=== PATIENT | female | born 1940 | race Two or more races ===

== ENCOUNTER 2018-10-17 09:42 | Inpatient (IN) | payer OTHER ==
[~2018-10-17] VITALS: Ht 157.5 cm; Wt 54.9 kg
[2018-10-18] MEDS ORDERED: PERCOCET 5-3251 EACH PO (09:12)
[2018-10-18] MEDS ORDERED: ELIQUIS2.5 MG PO (09:12)
[2018-10-18] MEDS ORDERED: CEFADROXIL500 MG PO (09:12)
== END 2018-10-18 11:06 | disposition home or self-care (01) | DRG 482 ==
LOC: SURH 09:42 → O/R 19:04 → SURH 21:41
PROVIDERS: Orthopaedic Surgery
PROC: 0QR Lower Bones, Replacement (ICD-10-PCS; 2018-10-17)
PROC: 0QSC04Z Reposition Left Lower Femur with Internal Fixation Device, Open Approach (ICD-10-PCS; principal; 2018-10-17 16:00)
DX: S72.462A Displaced supracondylar fracture with intracondylar extension of lower end of left femur, initial encounter for closed fracture (principal); M81.0 Age-related osteoporosis without current pathological fracture; W18.39XA Other fall on same level, initial encounter; Y93.89 Activity, other specified; Y92.89 Other specified places as the place of occurrence of the external cause; Y99.8 Other external cause status